=== PATIENT | male | born 1985 | race Caucasian/White ===

== ENCOUNTER 2022-11-12 10:50 | Outpatient (CLI) | payer OTHER, SELFPAY ==
--- NOTE | 2022-11-12 08:44 | W.ANESCHARGE ---
Anesthesia Charges Start Date/Time Anesthesia Start Date: 11/12/22 Anesthesia Start Time: 11:35 Stop Date/Time Anesthesia Stop Date: 11/12/22 Anesthesia Stop Time: 11:58
--- NOTE | 2022-11-12 11:59 | W.ANESCHARGE ---
Anesthesia Charges Start Date/Time Anesthesia Start Date: 11/12/22 Anesthesia Start Time: 11:35 Stop Date/Time Anesthesia Stop Date: 11/12/22 Anesthesia Stop Time: 11:38
--- NOTE | 2022-11-13 07:41 | W.ANESCHARGE ---
Anesthesia Charges Start Date/Time Anesthesia Start Date: 11/12/22 Anesthesia Start Time: 11:35 Stop Date/Time Anesthesia Stop Date: 11/12/22 Anesthesia Stop Time: 11:58
== END 2022-11-12 10:51 | disposition home or self-care (01) ==
PROVIDERS: PCP Family Medicine; Visit Provider Surgery
DX: R93.3 Abnormal findings on diagnostic imaging of other parts of digestive tract (principal); K20.90 Esophagitis, unspecified without bleeding; K22.89 Other specified disease of esophagus; K44.9 Diaphragmatic hernia without obstruction or gangrene
CPT/HCPCS: 43239; 45385; 731; 88305; 88342; J2704

== ENCOUNTER 2022-12-08 11:09 | Day surgery (SDC) | payer OTHER, SELFPAY ==
[2022-12-08] VITALS (13 sets, daily range): BP systolic 115–142; BP diastolic 73–96; PULSE 52–80; RESP 12–16; TEMP 36.3–36.8; O2SAT 95–99; BMI 28.0
[2022-12-08] MEDS: LACTATED RINGERS 1000 ML 1,000 ML 100 ML IV ×2 (11:35→13:44)
[2022-12-08] MEDS: SODIUM CHLORIDE 0.9 % (FLUSH) 10 ML SYRINGE IVF (11:45)
[2022-12-08] MEDS: ERTAPENEM 1 GM in 0.9 % SODIUM CHLORIDE Mini-bag 100 ML IVPB (11:55)
[2022-12-08] MEDS: BUPIVACAINE 0.25% 30 ML INJECTION (12:17)
--- NOTE | 2022-12-08 12:43 | W.ANESCHARGE ---
Anesthesia Charges Start Date/Time Anesthesia Start Date: 12/08/22 Anesthesia Start Time: 11:57 Stop Date/Time Anesthesia Stop Date: 12/08/22 Anesthesia Stop Time: 13:03
--- NOTE | 2022-12-08 13:04 | P.GSOP_ITS ---
Operative Note Pre-op diagnosis: 1. Biliary colic. Post-op diagnosis: 1. Biliary colic. 2. Acute on Chronic cholecystitis. Type of Procedure: 1. Laparoscopic cholecystectomy. Indications: 37-year-old male was seen in clinic with recurrent episodes of epigastric pain since August of this year. He initially developed an episode of cramping pain after eating Oreos and pizza. Severe cramping resolved but he did not feel well for 2 days after that. He had 2 similar episodes of pain after eating greasy food. Patient was in a different state and was evaluated in the emergency room. He was found to have normal WBC with mildly elevated transaminases and alkaline phosphatase of 127. His lipase was 1010 and total bilirubin of 1 with direct bilirubin of 0.5. An abdominal CT was obtained that showed mild gallbladder wall thickening with no cholelithiasis. There was also mild thickening of the distal esophagus with an enlarged lymph node adjacent to the lesser curvature of the stomach. Patient had upper endoscopy that did not show any esophageal masses or inflammation. He was found to have acid reflux changes. Patient had an abdominal ultrasound obtained at [facility] that showed cholelithiasis with no evidence of cholecystitis. His common bile duct was normal. Patient had no tenderness to palpation in the right upper quadrant. Given patient's clinical symptoms and his laboratory and imaging findings, biliary colic and possible acute on chronic cholecystitis was suspected, and laparoscopic cholecystectomy was recommended. The procedure was discussed in detail. The risks associated procedure including infection, bleeding, and injury to intra-abdominal organs were all discussed with the patient, and he agreed to proceed. Procedure Description: After discussing the risks and benefits of the procedure, the patient signed informed consent.? The operative site was marked and the patient was brought to the operating room and placed on the operating table in supine position.? Care was taken to pad the patient's pressure points.?? The patient was then intubated by anesthesia.?? The operative site was then prepped and draped in the usual sterile fashion.? A time-out was then performed. A 5-mm laparoscopy port was placed in the left upper quadrant guided by a 5-mm laparoscope placed into a translucent trochar.~ Passage through the layers of the abdominal wall was visualized with the laparoscope.~ A pneumoperitoneum was established. A 0-degree 5-mm laparoscope was advanced into the abdomen. The abdomen was briefly surveyed, and no adhesions were noted. A 10-mm port were placed infraumbilically and two more 5 mm ports were placed on the right under direct visualization by laparoscope. The camera was then changed to 10 mm 30- degree scope and placed into the abdomen through the 10 mm port. The left upper quadrant port entrance was examined and no injury to intra-abdominal organs was identified. The gallbladder was identified, the fundus grasped and retracted cephalad. The infundibulum was grasped and retracted laterally, exposing the peritoneum overlying the triangle of Calot. Minimal adhesions of duodenum were noted to the gallbladder infundibulum. Those were taken down with hook cautery. This was then divided and exposed in a blunt fashion and with hook cautery. Common bile duct was not identified but care was taken not to injure it. The cystic duct was clearly identified and bluntly dissected circumferentially. Cystic artery was identified and tissues around it were dissected off. The cystic artery and the cystic duct were clearly going into the gallbladder. The cystic duct was then doubly ligated with surgical clips on the patient's side and singly clipped on the gallbladder side and divided. The cystic artery was then similarly ligated with clips and divided as well. The gallbladder was dissected from the liver bed in retrograde fashion using hookcautery. Mild inflammation was noted in the gallbladder wall. The gallbladder was placed into an Endo-Catch bag and removed through the infraumbilical incision. Surgical site was examined for bleeding. No bleeding was seen in the surgical field. The fascia of the infraumbilical incision was then closed with 0-0 vicryl using Venu Holland needle under direct visualization. Pneumoperitoneum was completely reduced after viewing removal of the trocars under direct vision. The skin was then closed with 4-0 monocryl and steristrips were applied. Instrument, sponge, and needle counts were correct at closure and at the conclusion of the case. The patient was transferred to PACU in stable condition. Findings: Mild inflammation in the gallbladder wall pain Surgeon: Lili Lizarraga MD Estimated blood loss (mL): 5 Specimen: Gallbladder Condition: stable Disposition: PACU
--- NOTE | 2022-12-08 13:04 | W.ANESCHARGE ---
Anesthesia Charges Start Date/Time Anesthesia Start Date: 12/08/22 Anesthesia Start Time: 11:57 Stop Date/Time Anesthesia Stop Date: 12/08/22 Anesthesia Stop Time: 13:03
[2022-12-08] MEDS: ONDANSETRON 2 MG/ML inj 4 MG IVP (13:11)
[2022-12-08] MEDS: fentaNYL 100 MCG/2 ML inj 50 MCG IVP ×2 (13:19→13:25)
[2022-12-08] MEDS: HYDROCODONE-ACETAMIN 5-325 MG 1 TAB PO (14:40)
[2022-12-08] MEDS: hydrOXYzine pamoate 25 MG CAPSULE PO (15:35)
== END 2022-12-08 15:51 | disposition home or self-care (01) ==
PROVIDERS: PCP Family Medicine; Visit Provider Surgery
PROC: 0FT44ZZ Resection of Gallbladder, Percutaneous Endoscopic Approach (ICD-10-PCS; CPT 47562; principal; 2022-12-08 12:30)
DX: K80.10 Calculus of gallbladder with chronic cholecystitis without obstruction (principal)
CPT/HCPCS: 47562; 790; 88304; A9270; J0330; J0665; J1100; J1335; J2250; J2405; J2704; J2710; J3010; J3490; J7120